=== PATIENT | female | born 1955 | race Caucasian/White ===

== ENCOUNTER → 2017-01-03 | Outpatient (CLI) | payer BC ==
[2017-01-03 14:24] LABS: CH 29.3; CHCM 33.1; HDW 2.51; HGB 14.1 gm/dL (11.4-16.0); MCH 29.3 pg (25.0-35.0); MCHC 32.9 g/dL (31.0-37.0); Mean Platelet Volume 7.1; RBC 4.83 m/uL (3.80-5.40); RDW 13.1 % (11.5-15.5); WBC 9.2 k/uL (3.8-10.6)
[2017-01-03 14:55] LABS: ALT 24 U/L (9-52); AST 21 U/L (14-36); Alkaline Phosphatase 147 U/L (38-126); Anion Gap 9 mmol/L; Blood Urea Nitrogen 13 mg/dL (7-17); Calcium 9.1 mg/dL (8.4-10.2); Carbon Dioxide 26 mmol/L (22-30); Chloride 107 mmol/L (98-107); Glucose 87 mg/dL (74-99); Non-African American GFR(MDRD) >60 (>60 ml/min/1.73 sqM); Potassium 4.3 mmol/L (3.5-5.1); Sodium 142 mmol/L (137-145); Total Bilirubin 0.4 mg/dL (0.2-1.3)
[2017-01-03 15:14] LABS: Follicle Stimulating Hormone 89.1 mIU/mL
[2017-01-03 15:30] LABS: Estradiol 22 pg/mL
[2017-01-03 15:45] LABS: Vitamin B12 299 pg/mL (239-931)
== END | disposition home or self-care (01) ==
LOC: LABWHC1 13:44
PROVIDERS: ATTEND Obstetrics & Gynecology
DX: G47.00 Insomnia, unspecified (principal); R53.83 Other fatigue; M25.50 Pain in unspecified joint; Z78.0 Asymptomatic menopausal state
CPT/HCPCS: 36415; 80053; 82306; 82607; 82670; 83001; 84403; 84436; 84443; 84481; 85027; 86376